=== PATIENT | female | born 1990 | race Caucasian/White ===

== ENCOUNTER 2016-07-25 06:29 | Emergency (ER) | payer OTHER ==
[~2016-07-25] VITALS: Wt 71.0 kg
[2016-07-25 08:17] LABS: BASOPHILS % 0.2 % (0.0-2.0); EOSINOPHILS # 0.1 10^3/ul (0.0-0.5); EOSINOPHILS % 0.7 % (0.0-7.0); HEMATOCRIT 40.7 % (37.0-47.0); LYMPHOCYTES % 12.1 % (15.0-51.0); MEAN CORPUSCULAR HEMOGLOBIN 31.4 pg (29.0-33.0); MEAN CORPUSCULAR HGB CONC 34.5 g/dl (32.0-37.0); MEAN CORPUSCULAR VOLUME 91.1 fl (82.0-101.0); MEAN PLATELET VOLUME 9.2 fl (7.4-10.4); MONOCYTE # 0.6 10^3/ul (0.3-0.9); MONOCYTES % 7.5 % (0.0-11.0); NEUTROPHIL # 6.6 10^3/ul (1.6-7.5); NEUTROPHILS % 79.5 % (39.0-77.0); PLATELET COUNT 225 10^3/UL (140-440); RED BLOOD COUNT 4.46 10^6/ul (4.20-5.40); RED CELL DISTRIBUTION WIDTH 12.6 % (11.5-14.5); UNCORRECTED WBC 8.3 10^3/ul (4.8-10.8); WHITE BLOOD COUNT 8.3 10^3/ul (4.8-10.8)
[2016-07-25 08:22] LABS: URINE BLOOD (Dip) POC Negative (NEGATIVE)
[2016-07-25 08:23] LABS: POTASSIUM 4.1 mmol/L (3.5-5.1)
[2016-07-25 08:24] LABS: CONDITION 1
[2016-07-25 08:26] LABS: CREATININE 0.63 mg/dl (0.44-1.00)
[2016-07-25 08:27] LABS: CALCIUM 10.2 mg/dl (8.4-10.2)
[2016-07-25 09:12] VITALS: BP 118/64; PULSE 72; RESP 19; TEMP 98.4
--- NOTE | 2016-07-25 09:14 | ERD ---
ER Documentation Chief Complaint Date/Time DATE: 07/25/16 TIME: 09:10 Chief Complaint syncopal episode today while brushing her teeth. no neck or back. +loc HPI This 26-year-old female who was syncopal prior to arrival. The patient says that she had her lower wisdom teeth removed 4 days ago. She says that she has had many episodes in the past of syncope. She says her syncopal episodes are due to low sugar or pain. Patient says she has been waking up in pain every morning since her teeth are pulled out. She says that she had no breakfast but did have a nice dinner last night. Patient had no headache chest pain palpitations dizziness focal neurological complaints abdominal pain or recent heavy vaginal bleeding. The patient says she was in the bathroom getting ready and she was starting to feel lightheaded and dizzy. She said she sat on the floor because she knew she might pass out. She says she is passed out for 1-2 seconds and came to. She says she looked pale and numb when she looked in the mirror. She said the episode lasted less than 5 minutes and now feels fine. ROS All systems reviewed and are negative except as per history of present illness. 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) PER PT PMhx/Soc History of Surgery: Yes (appendectomy) Hx Miscellaneous Medical Probl: Yes (platelet problems) Smoking Status: Never smoker FmHx Family History: No coronary disease Physical Exam Vitals Vital Signs Date Time Temp Pulse Resp B/P Pulse Ox O2 Delivery O2 Flow Rate FiO2 07/25/16 08:08 66 122/61 65 117/71 88 111/74 07/25/16 06:42 98.8 74 21 113/74 99 Physical Exam Const: Well-developed, well-nourished Head: Atraumatic, normocephalic Eyes: Normal Conjunctiva, PERRLA, EOMI, normal sclera, no nystagmus ENT: Normal External Ears, Nose and Mouth, moist mucus membranes, wisdom teeth do not look infected does have dry socket. Neck: Full range of motion. No meningismus, no lymphadenopathy. Resp: Clear to auscultation bilaterally, no wheezing, rhonchi, rales Cardio: Regular rate and rhythm, no murmurs, S1 S2 present Abd: Soft, non tender x 4, non distended. Normal bowel sounds, no guarding or rebound, no pulsitile abdominal masses or bruits Skin: No petechiae or rashes, no ecchymosis , no maculopapular rash Back: No midline or flank tenderness Ext: No cyanosis, or edema, FROM x 4, normal inspection, neurovascularly intact x 4 Neur: Awake and alert, STR 5/5 x 4, sensation intact x 4, no focal findings, cerebellum intact Psych: Normal Mood and Affect Result Diagram: 07/25/16 0750 07/25/16 0750 Results 24 hrs Laboratory Tests Test 07/25/16 07:50 07/25/16 08:23 Anion Gap 16 Basophils # 0.010^3/ul Basophils % 0.2% Blood Urea Nitrogen 15mg/dl Calcium Level 10.2mg/dl Carbon Dioxide Level 25mmol/L Chloride Level 105mmol/L Creatinine 0.63mg/dl Eosinophils # 0.110^3/ul Eosinophils % 0.7% Glucose Level 93mg/dl Hematocrit 40.7% Hemoglobin 14.0g/dl Lymphocytes # 1.010^3/ul Lymphocytes % 12.1% Mean Corpuscular Hemoglobin 31.4pg Mean Corpuscular Hemoglobin Concent 34.5g/dl Mean Corpuscular Volume 91.1fl Mean Platelet Volume 9.2fl Monocytes # 0.610^3/ul Monocytes % 7.5% Neutrophils # 6.610^3/ul Neutrophils % 79.5% Nucleated Red Blood Cells # 0.010^3/ul Nucleated Red Blood Cells % 0.0/100WBC Platelet Count 75865^3/UL Potassium Level 4.1mmol/L Red Blood Count 4.4610^6/ul Red Cell Distribution Width 12.6% Sodium Level 142mmol/L White Blood Count 8.310^3/ul Bedside Urine Blood Negative Bedside Urine Glucose (UA) Negative Bedside Urine Ketones (LAB) Negative Bedside Urine Leukocyte Esterase (L Negative Bedside Urine Nitrite (LAB) Negative Bedside Urine Protein (LAB) Trace Bedside Urine pH (LAB) 5.5 Procedures/MDM EKG: Rate/Rhythm: Normal sinus rhythm, right axis deviation QRS, ST, QT: NORMAL DE, QRS, QT] Impression: NORMAL EKG Blood work is unremarkable. This patient is likely having another vasovagal episode pain from her wisdom teeth being removed No evidence of infection Departure Diagnosis: Primary Impression: Syncope Syncope type: unspecified Qualified Code: R55 - Syncope, unspecified syncope type Condition: Stable Patient Instructions: Causes of Syncope, Syncope, Unk Cause Referrals: MATEO DESAI (PCP) [place] CHRISTIANSON DO Jul 25, 2016 09:14
== END 2016-07-25 09:13 | disposition home or self-care (01) ==
LOC: E/R 06:29
DX: R55 Syncope and collapse (principal)
CPT/HCPCS: 36415; 80048; 81003; 85025; 93005